=== PATIENT | male | born 1980 | race Caucasian/White ===

== ENCOUNTER → 2025-01-09 11:29 | Outpatient (BNVA) | payer OTHER, SELFPAY | PROVIDERS: PCP Family Medicine; Visit Provider Family Medicine | DX: L90.8 Other atrophic disorders of skin (principal); Z13.6 Encounter for screening for cardiovascular disorders; G47.33 Obstructive sleep apnea (adult) (pediatric); I73.00 Raynaud's syndrome without gangrene; E66.811 Obesity, class 1; H91.90 Unspecified hearing loss, unspecified ear; M25.561 Pain in right knee | CPT/HCPCS: 80053; 80061; 84439; 84443; 85025 ==

== ENCOUNTER → 2025-03-26 15:51 | Outpatient (BNVA) | payer OTHER, SELFPAY | PROVIDERS: PCP Family Medicine; Visit Provider Nurse Practitioner | DX: T14.8XXA Other injury of unspecified body region, initial encounter (principal); W57.XXXA Bitten or stung by nonvenomous insect and other nonvenomous arthropods, initial encounter | CPT/HCPCS: 86618; 86666; 86757 ==